=== PATIENT | male | born 1990 | race Caucasian/White ===

== ENCOUNTER 2021-06-03 13:51 | Inpatient (IN) | payer OTHER ==
[2021-06-03 15:46] VITALS: BMI 24.4
[2021-06-03] MEDS ORDERED: IBUPROFEN 400 MG TABLET (FP) PO PRN (16:21)
[2021-06-03] MEDS ORDERED: BISMUTH SUBSALICYLATE 524 MG/30 ML PO PRN (16:21)
[2021-06-03] MEDS ORDERED: MAGNESIUM CITRATE 300 ML BOTTLE PO PRN (16:21)
[2021-06-03] MEDS ORDERED: MAG HYDROX/AL HYDROX/SIMETH 30 ML UNIT-DOSE CUP PO PRN (16:21)
[2021-06-03] MEDS ORDERED: MENTHOL/PHENOL 1 EACH UD MM PRN (16:21)
[2021-06-03] MEDS ORDERED: diazePAM 5 MG TABLET PO PRN (16:21)
[2021-06-03] MEDS ORDERED: METHOCARBAMOL 500 MG TABLET PO PRN (16:21)
[2021-06-03] MEDS ORDERED: ACETAMINOPHEN 325 MG TABLET (FP) PO PRN ×2 (16:21)
[2021-06-03] MEDS ORDERED: MAGNESIUM HYDROX 2400MG/30ML ORAL SUSPENSION 30 ML CUP PO PRN (16:21)
[2021-06-03] MEDS ORDERED: NICOTINE POLACRILEX 2 MG GUM BUC PRN (16:21)
[2021-06-03] MEDS ORDERED: ONDANSETRON *ODT* 4 MG TABLET SL PRN (16:21)
[2021-06-03] MEDS: hydrOXYzine PAMOATE 25 MG CAPSULE (FP) PO SCH ×2 (18:53→22:55)
[2021-06-03] MEDS: diazePAM 5 MG TABLET PO SCH ×2 (18:53→22:55)
[2021-06-03] MEDS: THIAMINE HCL 100 MG TABLET (FP) PO SCH (22:55)
[2021-06-03] MEDS: MELATONIN 5 MG TABLETS PO SCH (22:55)
[2021-06-03] MEDS: BACITRACIN 0.9 GM PACKET TP SCH (22:56)
[2021-06-04] MEDS: diazePAM 5 MG TABLET PO SCH ×4 (05:59→23:15)
[2021-06-04] MEDS: hydrOXYzine PAMOATE 25 MG CAPSULE (FP) PO SCH ×5 (05:59→23:10)
[2021-06-04] MEDS: BACITRACIN 0.9 GM PACKET TP SCH ×2 (10:54→23:09)
[2021-06-04] MEDS: PRENATAL VITAMINS W/ FOLIC ACID TABLET (FP) PO SCH (10:54)
[2021-06-04] MEDS: GABAPENTIN 300 MG CAPSULE PO SCH ×2 (14:18→23:09)
[2021-06-04] MEDS ORDERED: OLANZapine 10 MG TABLET PO SCH (22:00)
[2021-06-04] MEDS: THIAMINE HCL 100 MG TABLET (FP) PO SCH (23:09)
[2021-06-04] MEDS: MELATONIN 5 MG TABLETS PO SCH (23:10)
[2021-06-05] MEDS ORDERED: diazePAM 5 MG TABLET PO SCH (06:00)
[2021-06-05] MEDS: GABAPENTIN 300 MG CAPSULE PO SCH (06:26)
[2021-06-05] MEDS: hydrOXYzine PAMOATE 25 MG CAPSULE (FP) PO SCH ×2 (06:37→10:24)
[2021-06-05 09:21] VITALS: BP 110/62; PULSE 88; TEMP 96.9
[2021-06-05] MEDS: BACITRACIN 0.9 GM PACKET TP SCH (10:23)
[2021-06-05] MEDS: PRENATAL VITAMINS W/ FOLIC ACID TABLET (FP) PO SCH (10:23)
[2021-06-06] MEDS ORDERED: diazePAM 5 MG TABLET PO SCH (06:00)
[2021-06-07] MEDS ORDERED: diazePAM 5 MG TABLET PO ONE (06:00)
== END 2021-06-05 11:41 | disposition left against medical advice (07) | DRG 894 ==
LOC: YASAS 13:51 → Y3N 18:15
PROVIDERS: ADMIT Allergy & Immunology; ATTEND Allergy & Immunology
PROC: HZ2ZZZZ Detoxification Services for Substance Abuse Treatment (ICD-10-PCS; principal; 2021-06-03)
DX: F10.230 Alcohol dependence with withdrawal, uncomplicated (principal); F10.220 Alcohol dependence with intoxication, uncomplicated; F10.24 Alcohol dependence with alcohol-induced mood disorder; F17.210 Nicotine dependence, cigarettes, uncomplicated; F32.9 Major depressive disorder, single episode, unspecified; F43.10 Post-traumatic stress disorder, unspecified; F60.3 Borderline personality disorder; Z56.0 Unemployment, unspecified; Z59.01 Sheltered homelessness
CPT/HCPCS: 93005; 93010; C9803; U0003; U0005

== ENCOUNTER 2021-07-03 17:00 | Inpatient (IN) | payer OTHER ==
[2021-07-03 20:31] VITALS: BMI 23.6
[2021-07-03] MEDS ORDERED: NICOTINE POLACRILEX 2 MG GUM BUC PRN (22:03)
[2021-07-03] MEDS ORDERED: ACETAMINOPHEN 325 MG TABLET (FP) PO PRN ×2 (22:03)
[2021-07-03] MEDS ORDERED: hydrOXYzine PAMOATE 25 MG CAPSULE (FP) PO PRN (22:03)
[2021-07-03] MEDS ORDERED: ONDANSETRON *ODT* 4 MG TABLET SL PRN (22:03)
[2021-07-03] MEDS ORDERED: BISMUTH SUBSALICYLATE 524 MG/30 ML PO PRN (22:03)
[2021-07-03] MEDS ORDERED: MENTHOL/PHENOL 1 EACH UD MM PRN (22:03)
[2021-07-03] MEDS ORDERED: MAGNESIUM HYDROX 2400MG/30ML ORAL SUSPENSION 30 ML CUP PO PRN (22:03)
[2021-07-03] MEDS ORDERED: METHOCARBAMOL 500 MG TABLET PO PRN (22:03)
[2021-07-03] MEDS ORDERED: MAG HYDROX/AL HYDROX/SIMETH 30 ML UNIT-DOSE CUP PO PRN (22:03)
[2021-07-03] MEDS ORDERED: MAGNESIUM CITRATE 300 ML BOTTLE PO PRN (22:03)
[2021-07-03] MEDS ORDERED: IBUPROFEN 400 MG TABLET (FP) PO PRN (22:03)
[2021-07-03] MEDS ORDERED: chlordiazePOXIDE HCL 25 MG CAPSULE PO PRN (22:06)
[2021-07-03] MEDS ORDERED: chlordiazePOXIDE HCL 25 MG CAPSULE PO SCH (23:00)
[2021-07-03] MEDS ORDERED: diazePAM 5 MG TABLET PO PRN (23:44)
[2021-07-04] MEDS: BACITRACIN 0.9 GM PACKET TP SCH ×3 (00:59→23:00)
[2021-07-04] MEDS: diazePAM 5 MG TABLET PO SCH ×5 (01:00→23:00)
[2021-07-04] MEDS: PRENATAL VITAMINS W/ FOLIC ACID TABLET (FP) PO SCH (10:23)
[2021-07-04 12:33] LABS: HEMATOCRIT 33.4 % (35.4-49); HEMOGLOBIN 10.1 GM/dL (11.7-16.9); MCH 21.6 pg (25.7-33.7); MCHC 30.2 g/dl (32.0-35.9); MEAN CELL VOLUME 71.5 fl (80-96); MEAN PLT VOLUME 8.6 fl (7.5-11.1); PLATELET COUNT 398 10^3/uL (134-434); RBC 4.67 M/mm3 (4.00-5.60)
[2021-07-04 12:34] LABS: ALBUMIN 3.2 g/dl (3.4-5.0); BLOOD UREA NITROGEN 11.2 mg/dL (7-18)
[2021-07-04 12:36] LABS: TOT PROT 6.9 g/dl (6.4-8.2)
[2021-07-04 12:37] LABS: CREATININE 0.7 mg/dL (0.55-1.3)
[2021-07-04 12:38] LABS: BILIRUBIN,TOTAL 0.3 mg/dL (0.2-1)
[2021-07-04] MEDS: MELATONIN 5 MG TABLETS PO SCH (23:00)
[2021-07-04] MEDS: OLANZapine 10 MG TABLET PO SCH (23:00)
[2021-07-04] MEDS: THIAMINE HCL 100 MG TABLET (FP) PO SCH (23:00)
[2021-07-05] MEDS ORDERED: chlordiazePOXIDE HCL 25 MG CAPSULE PO SCH (05:00)
[2021-07-05] MEDS: diazePAM 5 MG TABLET PO SCH ×3 (06:01→22:24)
[2021-07-05] MEDS: PRENATAL VITAMINS W/ FOLIC ACID TABLET (FP) PO SCH (10:30)
[2021-07-05] MEDS: BACITRACIN 0.9 GM PACKET TP SCH ×2 (10:30→22:24)
[2021-07-05] MEDS: MELATONIN 5 MG TABLETS PO SCH (22:24)
[2021-07-05] MEDS: OLANZapine 10 MG TABLET PO SCH (22:25)
[2021-07-05] MEDS: THIAMINE HCL 100 MG TABLET (FP) PO SCH (22:25)
[2021-07-06] MEDS ORDERED: chlordiazePOXIDE HCL 10 MG CAPSULE PO PRN
[2021-07-06] MEDS ORDERED: chlordiazePOXIDE HCL 10 MG CAPSULE PO SCH (05:00)
[2021-07-06] MEDS: diazePAM 5 MG TABLET PO SCH ×2 (06:24→18:24)
[2021-07-06] MEDS: BACITRACIN 0.9 GM PACKET TP SCH ×2 (10:22→22:32)
[2021-07-06] MEDS: PRENATAL VITAMINS W/ FOLIC ACID TABLET (FP) PO SCH (10:22)
[2021-07-06] MEDS: MELATONIN 5 MG TABLETS PO SCH (22:32)
[2021-07-06] MEDS: OLANZapine 10 MG TABLET PO SCH (22:32)
[2021-07-06] MEDS: THIAMINE HCL 100 MG TABLET (FP) PO SCH (22:33)
[2021-07-07] MEDS ORDERED: chlordiazePOXIDE HCL 10 MG CAPSULE PO SCH (05:00)
[2021-07-07] MEDS ORDERED: diazePAM 5 MG TABLET PO ONE (06:00)
[2021-07-07] MEDS: BACITRACIN 0.9 GM PACKET TP SCH (10:35)
[2021-07-07] MEDS: PRENATAL VITAMINS W/ FOLIC ACID TABLET (FP) PO SCH (10:35)
[2021-07-07 10:36] VITALS: BP 114/80; PULSE 128; TEMP 96.9
[2021-07-08] MEDS ORDERED: chlordiazePOXIDE HCL 10 MG CAPSULE PO ONE (05:00)
== END 2021-07-07 10:47 | disposition home or self-care (01) | DRG 897 ==
LOC: YASAS 17:00 → Y3N 22:44
PROVIDERS: ADMIT Allergy & Immunology; ATTEND Allergy & Immunology
PROC: HZ2ZZZZ Detoxification Services for Substance Abuse Treatment (ICD-10-PCS; principal; 2021-07-03)
DX: F10.230 Alcohol dependence with withdrawal, uncomplicated (principal); F17.210 Nicotine dependence, cigarettes, uncomplicated; F10.24 Alcohol dependence with alcohol-induced mood disorder; F32.A Depression, unspecified; F43.10 Post-traumatic stress disorder, unspecified; G47.00 Insomnia, unspecified; Z56.0 Unemployment, unspecified; Z88.8 Allergy status to other drugs, medicaments and biological substances; Z88.6 Allergy status to analgesic agent; Z59.00 Homelessness unspecified; Z91.19 Patient's noncompliance with other medical treatment and regimen
CPT/HCPCS: 36415; 80053; 85027; 86780; C9803; U0003; U0005

== ENCOUNTER 2022-02-06 12:06 | Inpatient (IN) | payer OTHER ==
[2022-02-06 12:53] VITALS: BMI 24.4
[2022-02-06] MEDS ORDERED: MAG HYDROX/AL HYDROX/SIMETH 30 ML UNIT-DOSE CUP PO PRN (14:25)
[2022-02-06] MEDS ORDERED: MAGNESIUM HYDROX 2400MG/30ML ORAL SUSPENSION 30 ML CUP PO PRN (14:25)
[2022-02-06] MEDS ORDERED: BENZOCAINE/MENTHOL (CHLORASEPTIC ) LOZENGE MM PRN (14:25)
[2022-02-06] MEDS ORDERED: ONDANSETRON *ODT* 4 MG TABLET SL PRN (14:25)
[2022-02-06] MEDS ORDERED: BISMUTH SUBSALICYLATE 262 MG/15 ML BTL PO PRN (14:25)
[2022-02-06] MEDS ORDERED: MAGNESIUM CITRATE 300 ML BOTTLE PO PRN (14:25)
[2022-02-06] MEDS ORDERED: DICYCLOMINE HCL 10 MG CAPSULE PO PRN (14:25)
[2022-02-06] MEDS ORDERED: IBUPROFEN 400 MG TABLET (FP) PO PRN (14:25)
[2022-02-06] MEDS ORDERED: LOPERAMIDE HCL 2 MG CAPSULE PO PRN (14:25)
[2022-02-06] MEDS: IBUPROFEN 400 MG TABLET (FP) PO PRN (15:47)
[2022-02-06] MEDS: diazePAM 5 MG TABLET PO PRN (15:48)
[2022-02-06] MEDS: PRENATAL VITAMINS W/ FOLIC ACID TABLET (FP) PO SCH (15:49)
[2022-02-06] MEDS: hydrOXYzine PAMOATE 25 MG CAPSULE (FP) PO SCH ×2 (17:27→22:52)
[2022-02-06] MEDS: diazePAM 5 MG TABLET PO SCH ×2 (17:27→22:51)
[2022-02-06] MEDS: THIAMINE HCL 100 MG TABLET (FP) PO SCH (22:51)
[2022-02-06] MEDS: GABAPENTIN 400 MG CAPSULE PO SCH (22:51)
[2022-02-06] MEDS: MELATONIN 5 MG TABLETS PO SCH (22:52)
[2022-02-07] MEDS: diazePAM 5 MG TABLET PO SCH ×4 (05:18→22:25)
[2022-02-07] MEDS: GABAPENTIN 400 MG CAPSULE PO SCH ×3 (05:19→22:25)
[2022-02-07] MEDS: hydrOXYzine PAMOATE 25 MG CAPSULE (FP) PO SCH ×5 (05:19→22:25)
[2022-02-07 10:08] LABS: HEMATOCRIT 32.2 % (35.4-49); MCH 22.2 pg (25.7-33.7); MEAN CELL VOLUME 71.6 fl (80-96); MEAN PLT VOLUME 8.9 fl (7.5-11.1); PLATELET COUNT 309 10^3/uL (134-434); RDW 20.5 % (11.9-15.9); WHITE BLOOD COUNT 5.8 K/mm3 (4.0-10.0)
[2022-02-07] MEDS: METHOCARBAMOL 500 MG TABLET PO PRN ×2 (10:52→18:07)
[2022-02-07] MEDS: PRENATAL VITAMINS W/ FOLIC ACID TABLET (FP) PO SCH (10:52)
[2022-02-07] MEDS: IBUPROFEN 400 MG TABLET (FP) PO PRN (10:53)
[2022-02-07] MEDS: NICOTINE POLACRILEX 4 MG GUM BUC PRN (10:56)
[2022-02-07 11:27] LABS: BLOOD UREA NITROGEN 6.8 mg/dL (7-18); CALCIUM 8.7 mg/dL (8.5-10.1)
[2022-02-07 11:30] LABS: CREATININE 0.6 mg/dL (0.55-1.3)
[2022-02-07 11:32] LABS: TOT PROT 6.9 g/dl (6.4-8.2)
[2022-02-07 11:47] LABS: BILIRUBIN,TOTAL 0.2 mg/dL (0.2-1)
[2022-02-07] MEDS: diazePAM 5 MG TABLET PO PRN (13:29)
[2022-02-07] MEDS: MELATONIN 5 MG TABLETS PO SCH (22:25)
[2022-02-07] MEDS: THIAMINE HCL 100 MG TABLET (FP) PO SCH (22:25)
[2022-02-08] MEDS: GABAPENTIN 400 MG CAPSULE PO SCH ×3 (06:12→23:49)
[2022-02-08] MEDS: hydrOXYzine PAMOATE 25 MG CAPSULE (FP) PO SCH ×6 (06:12→23:50)
[2022-02-08] MEDS: diazePAM 5 MG TABLET PO SCH ×2 (06:12→13:19)
[2022-02-08] MEDS: METHOCARBAMOL 500 MG TABLET PO PRN (10:47)
[2022-02-08] MEDS: diazePAM 5 MG TABLET PO PRN ×2 (10:47→17:55)
[2022-02-08] MEDS: PRENATAL VITAMINS W/ FOLIC ACID TABLET (FP) PO SCH (10:47)
[2022-02-08] MEDS: NICOTINE POLACRILEX 4 MG GUM BUC PRN ×2 (10:48→13:22)
[2022-02-08] MEDS: IBUPROFEN 600 MG TABLET (FP) PO PRN (10:50)
[2022-02-08] MEDS: MELATONIN 5 MG TABLETS PO SCH (23:49)
[2022-02-08] MEDS: THIAMINE HCL 100 MG TABLET (FP) PO SCH (23:50)
[2022-02-09] MEDS: diazePAM 5 MG TABLET PO SCH ×3 (00:15→18:15)
[2022-02-09] MEDS: GABAPENTIN 400 MG CAPSULE PO SCH ×4 (06:08→22:58)
[2022-02-09] MEDS: hydrOXYzine PAMOATE 25 MG CAPSULE (FP) PO SCH ×6 (06:08→22:58)
[2022-02-09] MEDS: PRENATAL VITAMINS W/ FOLIC ACID TABLET (FP) PO SCH (10:07)
[2022-02-09] MEDS: diazePAM 5 MG TABLET PO PRN (10:10)
[2022-02-09] MEDS: IBUPROFEN 600 MG TABLET (FP) PO PRN (10:10)
[2022-02-09] MEDS: NICOTINE POLACRILEX 4 MG GUM BUC PRN (10:31)
[2022-02-09] MEDS ORDERED: OLANZapine 10 MG TABLET PO SCH (22:00)
[2022-02-09] MEDS: MELATONIN 5 MG TABLETS PO SCH (22:58)
[2022-02-09] MEDS: THIAMINE HCL 100 MG TABLET (FP) PO SCH (22:58)
[2022-02-10] MEDS ORDERED: diazePAM 5 MG TABLET PO ONE (06:00)
[2022-02-10] MEDS: GABAPENTIN 400 MG CAPSULE PO SCH (06:03)
[2022-02-10] MEDS: hydrOXYzine PAMOATE 25 MG CAPSULE (FP) PO SCH (06:04)
[2022-02-10] MEDS: IBUPROFEN 400 MG TABLET (FP) PO PRN (08:53)
[2022-02-10] MEDS: NICOTINE POLACRILEX 4 MG GUM BUC PRN (08:55)
[2022-02-10 09:22] VITALS: BP 128/92; PULSE 107; RESP 20; TEMP 98.1
== END 2022-02-10 09:15 | disposition home or self-care (01) | DRG 897 ==
LOC: YASAS 12:06 → Y6N 14:14
PROVIDERS: ADMIT Allergy & Immunology; ATTEND Surgery
PROC: HZ2ZZZZ Detoxification Services for Substance Abuse Treatment (ICD-10-PCS; principal; 2022-02-06)
DX: F10.230 Alcohol dependence with withdrawal, uncomplicated (principal); F33.1 Major depressive disorder, recurrent, moderate; F17.220 Nicotine dependence, chewing tobacco, uncomplicated; F10.220 Alcohol dependence with intoxication, uncomplicated; F10.282 Alcohol dependence with alcohol-induced sleep disorder; F10.280 Alcohol dependence with alcohol-induced anxiety disorder; F10.24 Alcohol dependence with alcohol-induced mood disorder; F60.3 Borderline personality disorder; E03.9 Hypothyroidism, unspecified; Z88.8 Allergy status to other drugs, medicaments and biological substances; Z88.6 Allergy status to analgesic agent; Z59.00 Homelessness unspecified; Z56.0 Unemployment, unspecified
CPT/HCPCS: 36415; 80053; 85027; 86780; 87811; C9803-CS; U0003; U0005

== ENCOUNTER 2022-02-28 10:06 | Inpatient (IN) | payer OTHER ==
[2022-02-28] MEDS ORDERED: MAG HYDROX/AL HYDROX/SIMETH 30 ML UNIT-DOSE CUP PO PRN (11:38)
[2022-02-28] MEDS ORDERED: DICYCLOMINE HCL 10 MG CAPSULE PO PRN (11:38)
[2022-02-28] MEDS ORDERED: ONDANSETRON *ODT* 4 MG TABLET SL PRN (11:38)
[2022-02-28] MEDS ORDERED: IBUPROFEN 600 MG TABLET (FP) PO PRN (11:38)
[2022-02-28] MEDS ORDERED: IBUPROFEN 400 MG TABLET (FP) PO PRN (11:38)
[2022-02-28] MEDS ORDERED: BENZOCAINE/MENTHOL (CHLORASEPTIC ) LOZENGE MM PRN (11:38)
[2022-02-28] MEDS ORDERED: METHOCARBAMOL 500 MG TABLET PO PRN (11:38)
[2022-02-28] MEDS ORDERED: NICOTINE 10 MG CARTRIDGE (INHALER) IH PRN (11:38)
[2022-02-28] MEDS ORDERED: BISMUTH SUBSALICYLATE 524 MG/30 ML PO PRN (11:38)
[2022-02-28] MEDS ORDERED: LOPERAMIDE HCL 2 MG CAPSULE PO PRN (11:38)
[2022-02-28] MEDS ORDERED: MAGNESIUM CITRATE 300 ML BOTTLE PO PRN (11:38)
[2022-02-28] MEDS ORDERED: MAGNESIUM HYDROX 2400MG/30ML ORAL SUSPENSION 30 ML CUP PO PRN (11:38)
[2022-02-28] MEDS: diazePAM 5 MG TABLET PO SCH ×3 (12:03→22:42)
[2022-02-28] MEDS: PRENATAL VITAMINS W/ FOLIC ACID TABLET (FP) PO SCH (12:04)
[2022-02-28] MEDS: hydrOXYzine PAMOATE 25 MG CAPSULE (FP) PO SCH ×3 (13:11→22:42)
[2022-02-28 15:44] LABS: HEMATOCRIT 33.2 % (35.4-49); HEMOGLOBIN 10.6 GM/dL (11.7-16.9); MCH 22.8 pg (25.7-33.7); MEAN CELL VOLUME 71.3 fl (80-96); MEAN PLT VOLUME 8.1 fl (7.5-11.1); PLATELET COUNT 211 10^3/uL (134-434); RBC 4.65 M/mm3 (4.00-5.60); RDW 20.3 % (11.9-15.9); WHITE BLOOD COUNT 6.4 K/mm3 (4.0-10.0)
[2022-02-28 16:12] LABS: ALBUMIN 3.6 g/dl (3.4-5.0)
[2022-02-28 16:13] LABS: BILIRUBIN,TOTAL 0.2 mg/dL (0.2-1); TOT PROT 8.1 g/dl (6.4-8.2)
[2022-02-28 16:15] LABS: CREATININE 0.9 mg/dL (0.55-1.3)
[2022-02-28] MEDS: THIAMINE HCL 100 MG TABLET (FP) PO SCH (22:42)
[2022-02-28] MEDS: MELATONIN 5 MG TABLETS PO SCH (22:44)
[2022-03-01] MEDS: diazePAM 5 MG TABLET PO SCH ×4 (06:05→23:56)
[2022-03-01] MEDS: hydrOXYzine PAMOATE 25 MG CAPSULE (FP) PO SCH ×5 (06:05→23:56)
[2022-03-01] MEDS: PRENATAL VITAMINS W/ FOLIC ACID TABLET (FP) PO SCH (10:36)
[2022-03-01] MEDS: diazePAM 5 MG TABLET PO PRN (14:38)
[2022-03-01] MEDS: NICOTINE POLACRILEX 2 MG GUM BUC PRN (14:41)
[2022-03-01] MEDS: GABAPENTIN 300 MG CAPSULE PO SCH ×2 (14:55→23:56)
[2022-03-01] MEDS ORDERED: GABAPENTIN 400 MG CAPSULE PO SCH (15:00)
[2022-03-01] MEDS: THIAMINE HCL 100 MG TABLET (FP) PO SCH (23:56)
[2022-03-01] MEDS: MELATONIN 5 MG TABLETS PO SCH (23:56)
[2022-03-01] MEDS: OLANZapine 10 MG TABLET PO SCH (23:57)
[2022-03-02] MEDS: GABAPENTIN 300 MG CAPSULE PO SCH ×3 (05:48→22:32)
[2022-03-02] MEDS: diazePAM 5 MG TABLET PO SCH ×3 (05:48→22:53)
[2022-03-02] MEDS: hydrOXYzine PAMOATE 25 MG CAPSULE (FP) PO SCH ×5 (05:49→22:33)
[2022-03-02] MEDS: PRENATAL VITAMINS W/ FOLIC ACID TABLET (FP) PO SCH (10:43)
[2022-03-02] MEDS: diazePAM 5 MG TABLET PO PRN ×2 (10:44→20:10)
[2022-03-02] MEDS: NICOTINE POLACRILEX 2 MG GUM BUC PRN (10:46)
[2022-03-02 10:59] LABS: ALBUMIN 2.9 g/dl (3.4-5.0); BLOOD UREA NITROGEN 7.4 mg/dL (7-18); CALCIUM 8.8 mg/dL (8.5-10.1)
[2022-03-02 11:02] LABS: CREATININE 0.5 mg/dL (0.55-1.3)
[2022-03-02 11:04] LABS: BILIRUBIN,TOTAL 0.2 mg/dL (0.2-1); TOT PROT 6.7 g/dl (6.4-8.2)
[2022-03-02] MEDS: OLANZapine 10 MG TABLET PO SCH (22:32)
[2022-03-02] MEDS: THIAMINE HCL 100 MG TABLET (FP) PO SCH (22:32)
[2022-03-02] MEDS: MELATONIN 5 MG TABLETS PO SCH (22:33)
[2022-03-03] MEDS: diazePAM 5 MG TABLET PO SCH ×2 (06:32→17:55)
[2022-03-03] MEDS: GABAPENTIN 300 MG CAPSULE PO SCH ×3 (06:32→23:08)
[2022-03-03] MEDS: hydrOXYzine PAMOATE 25 MG CAPSULE (FP) PO SCH ×5 (06:33→23:08)
[2022-03-03] MEDS: diazePAM 5 MG TABLET PO PRN (10:31)
[2022-03-03] MEDS: PRENATAL VITAMINS W/ FOLIC ACID TABLET (FP) PO SCH (10:31)
[2022-03-03] MEDS: THIAMINE HCL 100 MG TABLET (FP) PO SCH (23:08)
[2022-03-03] MEDS: OLANZapine 10 MG TABLET PO SCH (23:08)
[2022-03-03] MEDS: MELATONIN 5 MG TABLETS PO SCH (23:08)
[2022-03-04] MEDS ORDERED: diazePAM 5 MG TABLET PO ONE (06:00)
[2022-03-04] MEDS: GABAPENTIN 300 MG CAPSULE PO SCH (06:13)
[2022-03-04] MEDS: hydrOXYzine PAMOATE 25 MG CAPSULE (FP) PO SCH ×2 (06:13→09:30)
[2022-03-04 09:16] VITALS: BP 134/89; PULSE 106; RESP 17; TEMP 98
[2022-03-04] MEDS: PRENATAL VITAMINS W/ FOLIC ACID TABLET (FP) PO SCH (09:30)
== END 2022-03-04 09:40 | disposition home or self-care (01) | DRG 897 ==
LOC: YASAS 10:06 → Y6N 11:30
PROVIDERS: ADMIT Allergy & Immunology; ATTEND Surgery
PROC: HZ2ZZZZ Detoxification Services for Substance Abuse Treatment (ICD-10-PCS; principal; 2022-02-28)
DX: F10.230 Alcohol dependence with withdrawal, uncomplicated (principal); F33.1 Major depressive disorder, recurrent, moderate; F10.282 Alcohol dependence with alcohol-induced sleep disorder; F17.213 Nicotine dependence, cigarettes, with withdrawal; F25.1 Schizoaffective disorder, depressive type; F60.3 Borderline personality disorder; F43.10 Post-traumatic stress disorder, unspecified; E03.9 Hypothyroidism, unspecified; D50.9 Iron deficiency anemia, unspecified; Z86.69 Personal history of other diseases of the nervous system and sense organs; Z62.810 Personal history of physical and sexual abuse in childhood; Z56.0 Unemployment, unspecified; Z59.00 Homelessness unspecified
CPT/HCPCS: 36415; 80053; 83036; 85027; 86780; C9803-CS; U0003; U0005